=== PATIENT | female | born 1955 | race Caucasian/White ===

== ENCOUNTER 2021-10-26 10:18 | Day surgery (SDC) | payer MEDICARE, OTHER ==
[~2021-10-26] VITALS: Ht 157.5 cm; Wt 81.8 kg
[~2021-10-26 10:18] MED LIST: HYDROmorphone 2 MG/ML INJ. IVP PRN; IV RINGERS,LACTATED 1000ML 1,000 ML IV SCH; MORPHINE SULFATE 2 MG/ML INJ. IVP PRN; ONDA4TAB7 PO; OXYC1TAB15 PO; PROCHLORPERAZINE 10 MG/2 ML VIAL. IVP PRN; fentaNYL PF VIAL 100 MCG/2 ML VIAL IVP PRN
[2021-10-26 10:40] VITALS: BP 159/81
[2021-10-26] MEDS ORDERED: SCOPOLAMINE 1.5MG PATCH. TD SCH (11:30)
[2021-10-26] MEDS ORDERED: PROPOFOL 10 MG/ML (20ML) VIAL. IV ONE (11:56)
[2021-10-26] MEDS ORDERED: LIDOCAINE 2% PF 5 ML VIAL. ONE (11:57)
[2021-10-26] MEDS ORDERED: DEXAMETHASONE SOD PHOS 4 MG/ML VIAL ONE (11:57)
[2021-10-26] MEDS ORDERED: ONDANSETRON PF 4 MG/2 ML VIAL. ONE (11:57)
[2021-10-26] MEDS ORDERED: ROCURONIUM 50 MG/5 ML VIAL. ONE (12:01)
[2021-10-26] MEDS ORDERED: GELATIN SPONGE SIZE 100. ONE (12:27)
[2021-10-26] MEDS ORDERED: BUPIVACAINE-EPI 0.5% 30 ML VIAL KIT. ONE (12:27)
[2021-10-26] MEDS ORDERED: VANCOMYCIN 1 GM VIAL. ONE (12:52)
[2021-10-26] MEDS ORDERED: ceFAZolin 2GM PREMIX 2 GM/50 ML BAG IV ONE (13:00)
[2021-10-26] MEDS ORDERED: CHLORHEXIDINE 0.12% 15 ML MOUTHWASH. SWSP ONE (13:00)
[2021-10-26] MEDS ORDERED: BUPIVACAINE-EPI 0.5% 30 ML VIAL KIT. INJ ONE (13:09)
[2021-10-26] MEDS ORDERED: VANCOMYCIN 1 GM VIAL. TP ONE (13:09)
[2021-10-26] MEDS ORDERED: SUGAMMADEX SODIUM 200 MG/2 ML VIAL. IVP ONE (13:15)
[2021-10-26] MEDS ORDERED: PHENYLEPHRINE in 0.9% NACL PF 1 MG/10 ML SYRINGE. IV ONE (13:36)
--- NOTE | 2021-10-26 14:28 | PDOC4 ---
OPERATIVE NOTE Date: Date: Oct 26, 2021 Pre-Op Diagnosis: cyst associated with impacted tooth #32, and effecting # 31, 30 Post-Op Diagnosis: same Procedure Performed: Enucleation and curettage of cyst associated with impacted tooth #32, and effecting # 31, 30 Extraction of teeth # 32, 31, 30 Surgeon: billie Anesthesia Type: daisha Blood Loss: 20 Specimans Obtained: Enucleation and curettage of cyst associated with impacted tooth #32 Findings: Enucleation and curettage of cyst associated with impacted tooth #32, and effecting # 31, 30 Extraction of teeth # 32, 31, 30 See dictation Complications: none Operative Note: see dictation Enucleation and curettage of cyst associated with impacted tooth #32, and effecting # 31, 30 Extraction of teeth # 32, 31, 30 TYE BENOIT DMD Oct 26, 2021 14:28
--- NOTE | 2021-10-26 15:24 | OP ---
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 PREOPERATIVE DIAGNOSIS: Odontogenic cyst associated with tooth #32. POSTOPERATIVE DIAGNOSIS: Odontogenic cyst associated with tooth #32. PROCEDURES PERFORMED: Enucleation and curettage of odontogenic cyst associated with tooth #32 and extraction of associated teeth #32, #31 and #30. BRIEF HISTORY: The patient is referred to our clinic for evaluation of odontogenic cyst and symptomatic painful wisdom tooth #32. The patient was evaluated with the radiographic imaging and found to have a large cyst associated with impacted tooth #32, this was weakening the mandible, had eroded significant portion of the mandible and displaced the inferior alveolar nerve. The cyst had enlarged to include the roots of teeth #31, #30, and the cyst originated from the impacted crown of tooth #32. The cyst measurement approximately is 5 cm x 4 cm x 3 cm. We discussed with this patient plans for management. She elected to the treatment plan including enucleation and curettage in the OR, extraction of teeth #32, #31 and #30 and placement of a marsupialization tube in the lower right mandible to decompress the cyst associated with tooth #32. History and physical was performed in our clinic. Permit was obtained. OPERATIVE DESCRIPTION OF PROCEDURE: After the history and physical was updated in the preoperative holding area, the patient was transported by the Anesthesia Service, placed in the supine position. In the OR suite, general anesthesia was induced. The patient was intubated without complication. The tube was secured to the upper left face and a moistened throat pack was placed to protect the airway. A timeout was initiated and all surgical staff was in agreeance. Surgery began with administration of 10 mL of 0.5% Marcaine, 1:200,000 epinephrine into the proposed surgical areas. An additional 10 mL were given at the culmination of the surgery for a total of 20 mL of 0.5% bupivacaine and 1:200,000 epinephrine. Surgery began with a distal hockey stick incision with a 15 blade and distal to #31, distal buccal, this full-thickness mucoperiosteal flap was brought forward to tooth #29. Teeth #31 and #30 were luxated, elevated and extracted without complication. The cyst was soon discovered at this point. Rotary instrumentation was utilized to unroof the cyst and curettage of the cyst was performed with hand instruments. The inferior alveolar nerve was exposed throughout this process and care was taken to preserve the nerve. The nerve was intact at the culmination of the procedure Tooth #32 was then sectioned with rotary instrumentation and copious normal sterile saline irrigation without complication. The tooth was removed without complication. The site was then inspected again for any remnants of follicle to ensure that all portions were removed. At this point, the large decompressed area was exposed. The sites were smoothed to remove any sharp edges and lavaged with copious normal sterile saline irrigation. Once this was completed, a small amount of vancomycin powder was placed into the site and lavaged and suctioned. A small prefabricated piece of IV tubing that was fitted it was soaked in Betadine for approximately 60 minutes and then it was lavaged and sutured into extraction site #30 to allow the decompression process to begin. This marsupialization tube was sutured with 3-0 silk sutures without complication. The wound was closed with 3-0 chromic gut sutures in a running locked fashion and interrupted sutures to establish hemostasis. At this point, the oral cavity was lavaged and suctioned. The additional anesthetic was administered at this time and the moistened throat pack was removed and an OG tube was passed and the stomach was decompressed. The patient was then returned to the care of anesthesia where she was awakened and extubated without complication and transported to the PACU in stable condition. ESTIMATED BLOOD LOSS: Approximately 20 mL SPECIMEN SENT: One specimen was the odontogenic cyst associated with impacted tooth #32 and portions of tooth #32 were sent as well. COMPLICATIONS: None noted at the time of surgery. Tubes placed against the marsupialization tube will be counted as one tube, which was sewn into the extraction site #30 to allow the cyst to decompress towards the site and ultimately this will be removed in our clinic postoperatively in 6 to 24 months. ELLA/CLIFFORD DR: Leonila TID: [id number] [place]
[2021-10-26 17:02] VITALS: BP 172/93
--- NOTE | 2021-10-27 18:09 | PATHOLOGY ---
[facility] Accession Number: [id number] . 01 Material submitted: . mandible - CYST ASSOCIATED WITH IMPACTED TOOTH 32. Modifiers: right, lower . 01 Clinician provided ICD-10: y . 01 Clinical history: . PAIN LOWER RT MANDIBLE EXTRACT #30, #31, #32, ENUCLEATE AND CURETTAGE UNILOCULAR CYST #31 PLACEMENT OF MARSUPIALIZATION TUBE LOWER RIGHT MANDIBLE . 02 Diagnosis: Cyst associated with impacted tooth #32, enucleation and curettage: - Dentigerous cyst, with focal fibrosis, chronic inflammation, hemosiderin laden macrophages, and cholesterol granulomas. (JPM:bere; 10/27/2021) MBR 10/27/2021 1722 Local . 02 Electronically signed: . Guanako Limon MD, Pathologist NPI- [id number] . 01 Gross description: . The specimen is received in formalin, labeled "Michael Tomas, cyst associated with impacted tooth #32". Received is a fragmented rascon-white to yellow, focally hemorrhagic tooth measuring 1.7 x 1.0 x 1.0 cm. Also included in the container is a 2.5 x 0.9 x 0.6 cm rascon-pink, focally hemorrhagic, membranous and focally shaggy, saccular piece of soft tissue. The soft tissue specimen is entirely submitted in cassette A1. (JGG; 10/26/2021) JGG/JGG 10/27/2021 1629 Local . 02 Pathologist provided ICD-10: K09.0 . 02 CPT . 389637 Specimen Comment: A courtesy copy of this report has been sent to [phone] Specimen Comment: Report sent to Specimen Comment: A duplicate report has been generated due to demographic updates. Performed at: 01 [facility] [address] [facility] [address], [place] [id number] MD Joseph Park MD Phone: [phone] Performed at: 02 [facility] [address] [place], [place] [id number] MD Guanako Limon MD Phone: [phone]
== END 2021-10-26 17:15 | disposition home or self-care (01) ==
LOC: SURG 10:18
PROVIDERS: ATTEND Dentist Oral and Maxillofacial Surgery
DX: K09.0 Developmental odontogenic cysts (principal); M19.90 Unspecified osteoarthritis, unspecified site; Z85.828 Personal history of other malignant neoplasm of skin; Z79.899 Other long term (current) drug therapy; Z98.890 Other specified postprocedural states
CPT/HCPCS: 41899; 88305; A4930; J0690; J1100; J2370; J2405; J2704; J3370; J3490; A4657